=== PATIENT | female | born 1950 | race Caucasian/White ===

== ENCOUNTER → 2016-12-24 | Outpatient (CLI) | payer BC ==
[~2016-12-24] MED LIST: CALC500C70 PO; MOME50SP5 NAE; MULT-506 PO
[2016-12-24 10:47] LABS: BASO % 1.1 %; BASO ABS # 0.04 K/uL (0-0.2); COMPLETE YES; EOS % 3.8 %; HEMATOCRIT 44.4 % (37-47); LYMPH % 26.2 %; LYMPH ABS # 0.97 K/uL (1.2-3.4); MEAN CELL VOLUME 94.1 fL (80-100); MEAN CORPUSCULAR HEMOGLOBIN 28.8 pg (25-34); MEAN CORPUSCULAR HGB CONC 30.6 g/dl (32-36); MONO % 17.8 %; NEUT % 51.1 %; PLATELET COUNT 263 K/uL (130-400); RED BLOOD COUNT 4.72 M/uL (4.2-5.4)
[2016-12-24 11:06] LABS: ALB/GLOB RATIO 1.2 (0.9-2); ALKALINE PHOSPHATASE 73 U/L (45-117); ALT/SGPT 27 U/L (12-78); AST/SGOT 24 U/L (15-37); BLOOD UREA NITROGEN 21 mg/dl (7-18); BUN/CREATININE RATIO 28.2 (10-20); CARBON DIOXIDE 27 mmol/L (21-32); CHLORIDE 108 mmol/L (98-107); CHOLESTEROL 183 mg/dl (0-200); CREATININE 0.74 mg/dl (0.60-1.20); GLUCOSE 89 mg/dl (70-99); HDL CHOLESTEROL 90 mg/dl; LDL CHOLESTEROL CALCULATED 80 mg/dl; POTASSIUM 4.1 mmol/L (3.5-5.1); SODIUM 143 mmol/L (136-145); TRIGLYCERIDES 66 mg/dl (0-150); VERY LOW DENSITY LIPOPROT CALC 13 mg/dl
[2016-12-24 11:10] LABS: MANUAL MICROSCOPIC REQUIRED? YES; URINE APPEARANCE CLEAR (CLEAR); URINE BILIRUBIN NEG (NEG); URINE COLOR YELLOW; URINE NITRITE NEG (NEG); UROBILINOGEN NEG (NEG)
[2016-12-24 11:19] LABS: REVIEW REQ? NO
[2016-12-24 11:33] LABS: CALCIUM 8.8 mg/dl (8.5-10.1)
[2016-12-24 11:33] LABS: URINE RBC >30 /hpf (0-4); URINE WBC 0 /hpf (0-5)
[2016-12-24 11:34] LABS: URINE BACTERIA NEG (NEG)
== END | disposition home or self-care (01) ==
LOC: C.LABBC 07:51
PROVIDERS: ATTEND Internal Medicine Pulmonary Disease
DX: Z00.00 Encounter for general adult medical examination without abnormal findings (principal); J30.9 Allergic rhinitis, unspecified; K57.90 Diverticulosis of intestine, part unspecified, without perforation or abscess without bleeding; K22.4 Dyskinesia of esophagus; H81.09 Meniere's disease, unspecified ear

== ENCOUNTER → 2017-02-17 | Outpatient (CLI) | payer BC | END | disposition home or self-care (01) | LOC: C.PATHSPEC 17:07 | PROVIDERS: ATTEND Nurse Practitioner Family | DX: R31.29 Other microscopic hematuria (principal) ==

== ENCOUNTER → 2017-03-21 | Outpatient (CLI) | payer BC ==
--- NOTE | 2017-03-21 09:33 | DIAGNOSTIC IMAGING REPORT ---
CT OF THE ABDOMEN AND PELVIS WITH AND WITHOUT CONTRAST HEMATURIA PROTOCOL CLINICAL HISTORY: Microscopic hematuria. COMPARISON STUDY: None. TECHNIQUE: Unenhanced and split bolus phase imaging of the abdomen and pelvis was performed. Injection of 93 cc Optiray 320 IV was uneventful. A dose lowering technique was utilized adhering to the principles of ALARA. CT DOSE: 927.18 mGycm FINDINGS: No renal, ureteral or bladder calculi are present. There are left-sided parapelvic cysts. Small right parapelvic cysts are noted. There is no hydronephrosis or hydroureter. No solid renal lesions are identified. There are several subcentimeter renal lesions which are too small to characterize but likely reflect cysts. No upper tract urothelial lesions are identified on since exam. Bladder is incompletely opacified but no bladder mass is identified. The liver, spleen, adrenal glands and pancreas are unremarkable. There is no lymphadenopathy within the abdomen or pelvis. Sigmoid diverticulosis is noted without evidence for acute diverticulitis. There is no ascites. No suspicious osseous lesion is present. IMPRESSION: 1. No CT findings to explain hematuria. 2. No acute process within the abdomen or pelvis. 3. Several subcentimeter bilateral renal lesions which are too small to characterize but likely reflect cysts. Electronically signed by: Silas Oquendo M.D. 03/21/2017 9:32 AM Dictated Date/Time: 03/21/2017 9:02 AM
== END | disposition home or self-care (01) ==
LOC: C.CTS 08:34
PROVIDERS: ATTEND Nurse Practitioner Family
DX: R31.29 Other microscopic hematuria (principal)

== ENCOUNTER → 2017-04-08 | Outpatient (CLI) | payer BC ==
--- NOTE | 2017-04-08 14:55 | MAMMOGRAPHY REPORT ---
BILATERAL DIGITAL SCREENING MAMMOGRAM WITH CAD: 04/08/2017 CLINICAL HISTORY: Routine screening. Patient has no complaints. TECHNIQUE: Current study was also evaluated with a Computer Aided Detection (CAD) system. Bilateral CC and MLO views were obtained. COMPARISON: Comparison is made to exams dated: 04/07/2016 mammogram, 04/02/2015 mammogram, 04/01/2014 m ammogram, 03/26/2013 mammogram, 03/24/2012 mammogram, and 03/24/2012 ultrasound - [facility]. BREAST COMPOSITION: The tissue of both breasts is extremely dense, which lowers the sensitivity of m ammography. FINDINGS: No suspicious masses, calcifications, or areas of architectural distortion are noted in ei ther breast. There has been no significant interval change compared to prior exams. Scattered bilater al benign-appearing calcifications are not significantly changed. IMPRESSION: ACR BI-RADS CATEGORY 2: BENIGN There is no mammographic evidence of malignancy. A 1 year screening mammogram is recommended. The pa tient will receive written notification of the results. Approximately 10% of breast cancers are not detected with mammography. A negative mammographic report should not delay biopsy if a clinically suggestive mass is present. Areli Talavera M.D. /:04/08/2017 12:02:17 Door Cutter: Alina BUSCH(Britt)(M), [facility] letter sent: Normal 1/2 BI-RADS Code: ACR BI-RADS Category 2: Benign
== END | disposition home or self-care (01) ==
LOC: C.MAMM 09:18
PROVIDERS: ATTEND Obstetrics & Gynecology
DX: Z12.31 Encounter for screening mammogram for malignant neoplasm of breast (principal)

== ENCOUNTER 2025-04-03 15:32 | Observation (INO) ==
--- NOTE | 2025-04-03 15:49 | Emergency Department Note ---
Impression & Plan Diverticulitis of large intestine with complication, Abdominal pain, Sigmoid diverticulitis ED Provider Note NAME: SAGAR PENDLETON AGE: 74 SEX: F : 1950 ARRIVES VIA: Walk-In INFORMANT: Patient ED PROVIDER(S): Rojelio Krishnamurthy MD CHIEF COMPLAINT: Complicated diverticulitis, referred. PLAN: Disposition: Admit MEDICAL DECISION MAKING: The patient is a pleasant 74-year-old woman with a past medical history of hypertension, prior history of diverticulitis who presents to the emergency department via walk-in accompanied by her daughter referred by her PCP office after her outpatient CT today demonstrated complicated diverticulitis where acute diverticulitis of the sigmoid colon is described with adjacent sigmoid mesocolon extending towards the posterior uterus suggesting possible sinus tract. Patient denies any fevers. At this time she denies any abdominal pain. She denies nausea or vomiting. She reports symptoms began a week or so ago where she had episodes of diarrhea. Subsequently she had lower abdominal pain which was reminiscent of her history of diverticulitis until contact her PCP office and CT imaging was ordered. She reports going to the weekend she started a clear diet and felt her symptoms calm and improved. On evaluation the patient no distress, afebrile blood pressure 170/100s vital signs otherwise stable. She has a soft nontender ventral hernia which was also seen on CT. Otherwise abdomen is nontender. WBC, H/H and platelets within normal limits. Chemistry without metabolic acidosis. Electrolytes LFTs unremarkable. Lipase is normal. UA without evidence of infection. Treatment issue with IV Zosyn. Patient and daughter agree with plan for admission for further management. Case was discussed with ESTELA Cardona PAC, with ESTELA Ryan hospitalist who will evaluate the patient for admission. Further management per admitting team. Triage Nursing notes reviewed and agree them. Prior/external medical records reviewed Vital Signs: reviewed Differential diagnosis: Gastroenteritis, food borne illness, infections, appendicitis, diverticulitis, inflammatory bowel disease, obstruction, GI bleed, biliary pathology, volvulus, as well as other pathologies. ER treatment provided: See below. Diagnostics interpreted by me: ECG: None Cardiac Monitoring: An order for continuous cardiac monitoring was placed and demonstrated Laboratory studies: See below Imaging studies: See below Consultation(s): Case was discussed with ESTELA Cardona PAC, with ESTELA Ryan hospitalist who will evaluate the patient for admission. HPI: Per MDM. ROS: See above HPI for pertinent positives & negatives. A total of 10 systems reviewed and were otherwise negative. VITALS:See Below PHYSICAL EXAMINATION: GENERAL: Awake, alert, well-appearing, in no distress HENT: Normocephalic, atraumatic. Oropharynx unremarkable. EYES: Normal conjunctiva. Sclera non-icteric. NECK: Supple. No nuchal rigidity. FROM. No JVD. RESPIRATORY: Clear to auscultation. CARDIAC: Regular rate, normal rhythm. Extremities warm and well perfused. Pulses equal. ABDOMEN: Soft, non-distended. No tenderness to palpation. No rebound or guarding. Ventral hernia, soft nontender MUSCULOSKELETAL: Chest examination reveals no tenderness. The back is symmetrical on inspection without obvious abnormality. There is no CVA tenderness to palpation. No joint edema. LOWER EXTREMITIES: Calves are equal size bilaterally and non-tender. No edema. No discoloration. NEURO: Normal sensorium. No sensory or motor deficits noted. SKIN: No rash or jaundice noted. Rojelio Krishnamurthy MD Past Med/Surg History Problem List (Updated 04/04/25 @ 01:44 by Rojelio Krishnamurthy MD) Abdominal pain (Acute) Diverticulitis of large intestine with complication (Acute) Sigmoid diverticulitis (Acute) Abdominal pain History of diverticulitis Primary hypertension Varicose veins of both lower extremities Osteopenia Hyperlipidemia Asymmetric SNHL (sensorineural hearing loss) Rectal pain Medical History ETD (eustachian tube dysfunction) Sensorineural hearing loss (SNHL) of left ear with restricted hearing of right ear Diverticulosis Basal cell carcinoma of skin Menieres disease Rectal pressure Borderline glaucoma Surgical History History of basal cell carcinoma (BCC) excision Previous section H/O hernia repair H/O colonoscopy (~2014) Family History Father Allergies Other Diabetes Osteoporosis Social History Smoking Status: Former smoker Tobacco Type: Cigarettes Age Started Using Tobacco: 15; Age Quit Using Tobacco: 23; packs per day: 1; Smoking End Date: 50 years ago; Second Hand Exposure: No; Do You Dip or Chew Tobacco: No; Hx Alcohol Use: Yes Alcohol type: wine Alcohol Intake Frequency: 2-3 x/Week Alcohol Intake Frequency Comment: 1 glass of wine everal times a week Hx Substance Use: No Preferred Language: Welsh Communication Ability: Effective Stock Parts Inspector Required: No Beliefs That Will Affect Care: None marital status: Current Living Situation: Spouse Current Living Situation Comment: lives in split level home with current occupational status: retired Other Information That Helps Us Care for You: No Feels Safe at Home: Yes Safety Concerns: Feels Safe At This Time Seatbelt Use: always Assistive Devices: Contacts and Hearing Aid - Bilateral Allergies Allergies Allergy/AdvReac Type Severity Reaction Status Date / Time No Known Drug Allergies Allergy Verified 04/02/25 13:49 Home Meds Home Medications Medication Instructions Recorded Confirmed multivitamin (Daily Multi-Vitamin 1 tab PO QAM 04/26/23 04/03/25 tablet) calcium 600 mg (as carbonate)-vit 1 tab PO BID 05/31/24 04/03/25 D3 10 mcg (400 unit) chewable tablet (Calcium 600 with Vitamin D3) mometasone 50 mcg/actuation nasal 1 spray intranasal 3XWK 04/03/25 04/03/25 spray Previous Rx's Medication Instructions Recorded hydrocortisone acetate 25 mg 25 mg LA BID 10 days #20 ea 04/02/25 rectal suppository (Anucort-HC) olmesartan 5 mg tablet 5 mg PO DAILY #90 tabs 04/02/25 Results & Data (ED) Vital Signs Vital Signs - 24 hr 04/03/25 15:34 04/03/25 16:29 04/03/25 16:33 Temperature 36.5 C Temperature Source Skin Pulse Rate 87 75 77 Pulse Rate from SpO2 Sensor 77 Respiratory Rate 20 22 Respiratory Effort / Characteristics Non-Labored Spontaneous Respiratory Depth Normal Respiratory Pattern Regular Blood Pressure 178/100 H 153/79 H Blood Pressure Mean 126 103 Pulse Oximetry 94 95 Oxygen Delivery Method Room Air Sepsis Recent Fever Within 48 Hours No Sepsis New/Unexplained Change in Mental Status N/A Sepsis Action Taken by Nursing No Action Required 04/03/25 17:00 04/03/25 17:39 Temperature Temperature Source Pulse Rate 77 66 Pulse Rate from SpO2 Sensor 77 66 Respiratory Rate 16 19 Respiratory Effort / Characteristics Respiratory Depth Respiratory Pattern Blood Pressure 169/85 H Blood Pressure Mean 113 Pulse Oximetry 98 95 Oxygen Delivery Method Sepsis Recent Fever Within 48 Hours Sepsis New/Unexplained Change in Mental Status Sepsis Action Taken by Nursing Laboratory Data Attestation: I reviewed the patient's lab results. 04/03/25 15:40 04/03/25 16:24 Lab Results 04/03/25 04/03/25 04/03/25 Range/Units 15:40 16:24 18:12 WBC 9.46 (4.8-10.8) K/ul RBC 4.30 (4.20-5.40) M/uL Hgb 13.0 (12.0-16.0) g/dl Hct 39.0 (37.0-47.0) % MCV 90.7 (80.0-100.0) fL MCH 30.2 (25.0-34.0) pg MCHC 33.3 (32.0-36.0) g/dL RDW Std Deviation 41.6 (36.4-46.3) fL RDW Coeff of Gemini 12.6 (11.5-14.5) % Plt Count 369 (130-400) K/uL MPV 9.2 L (9.4-12.4) fL Immature Gran % (Auto) 0.4 % Neut % (Auto) 72.3 % Lymph % (Auto) 13.7 % [place] % (Auto) 11.0 % Eos % (Auto) 1.9 % Baso % (Auto) 0.7 % Neut # (Auto) 6.83 H (1.40-6.50) K/uL Lymph # (Auto) 1.30 (1.20-3.40) K/uL [place] # (Auto) 1.04 H (0.11-0.59) K/uL Eos # (Auto) 0.18 (0.00-0.50) K/uL Baso # (Auto) 0.07 (0.00-0.20) K/uL Immature Gran # (Auto) 0.04 (0.01-0.20) K/uL Sodium 134 L (136-145) mmol/L Potassium TNP 3.9 Chloride 99 (98-107) mmol/L Carbon Dioxide 29 (21-32) mmol/L Anion Gap 6 (3-11) BUN 6 (6-23) mg/dl Creatinine 0.68 (0.6-1.2) mg/dl Est Cr Clr Drug Dosing 58.2 ml/min eGFR 90.20 BUN/Creatinine Ratio 8.8 L (10-20) Glucose 96 (70-99(Fasting)) mg/dl Calcium 8.8 (8.6-10.3) mg/dl Total Bilirubin 0.5 (0.2-1.0) mg/dl AST TNP 20 ALT 15 (7-52) U/L Alkaline Phosphatase 69 (34-104) U/L Total Protein 7.1 (6.0-8.3) gm/dl Albumin 3.6 (3.4-5.0) gm/dl Globulin 3.5 (2.5-4.0) gm/dl Albumin/Globulin Ratio 1.0 (0.9-2) Lipase 25 (11-82) U/L Urine Color Yellow Urine Appearance Clear (Clear) Urine pH 7.5 (4.5-7.5) Ur Specific [place] 1.009 (1.000-1.030) Urine Protein Negative (Negative) Urine Glucose (UA) Negative (Negative) Urine Ketones Negative (Negative) Urine Blood Negative (Negative) Urine Nitrite Negative (Negative) Urine Bilirubin Negative (Negative) Urine Urobilinogen Negative (Negative) Ur Leukocyte Esterase Trace H (Negative) Urine WBC (Auto) 0-5 (0-5) /hpf Urine RBC (Auto) 0-2 (0-2) /hpf U Hyaline Cast (Auto) 0-2 (0-2) /lpf U Epithel Cells (Auto) 0-2 (0-2) /hpf Urine Bacteria (Auto) None Seen (None Seen) Urine Comment Administered Medications Lactated Ringer's (Lr) 1,000 mls @ 80 mls/hr IV .[id number] CARLY Stop: 04/04/25 19:14 Last Admin: 04/03/25 18:43 Dose: 80 mls/hr Documented By: CEF Piperacillin Sod/Tazobactam Sod (Zosyn) 4.5 gm in 100 mls @ 25 mls/hr IV Q8H [facility]; Protocol Stop: 04/07/25 22:59 Last Admin: 04/04/25 00:12 Dose: 25 mls/hr Documented By: YUE Simethicone (Simethicone 80 Mg Chew) 80 mg PO Q6H CARLY Stop: 05/03/25 22:59 Last Admin: 04/04/25 00:14 Dose: Not Given Documented By: YUE Discontinued Medications Piperacillin Sod/Tazobactam Sod (Zosyn) 4.5 gm in 100 mls @ 200 mls/hr IV NOW ONE; Protocol Stop: 04/03/25 16:33 Last Infusion: 04/03/25 16:49 Dose: Infused Documented By: Admin: 04/03/25 16:12 Dose: 200 mls/hr Documented By: CEF Sodium Chloride (Nss) 1,000 mls @ 999 mls/hr IV .Q1H1M ONE Stop: 04/03/25 17:04 Last Infusion: 04/03/25 18:43 Dose: Infused Documented By: Admin: 04/03/25 16:11 Dose: 999 mls/hr Documented By: CEF Imaging Data Radiologist's Impression: Outpatient CT: ABDOMEN AND PELVIS CT WITH IV AND ORAL CONTRAST CT DOSE: 569.26 mGy.cm HISTORY: Z87.19 - Personal history of other diseases of the digest... TECHNIQUE: Multiaxial CT images of the abdomen and pelvis were performed following the IV administration of Optiray and oral contrast. A dose lowering technique was utilized adhering to the principles of ALARA. COMPARISON STUDY: 05/03/2023 FINDINGS: Mild cardiomegaly. Lung bases are generally clear. No pneumatosis or pneumoperitoneum. Unremarkable spleen, pancreas, adrenal glands and contracted gallbladder. The liver is within normal limits. There is patency of the hepatic and portal veins. No hydronephrosis. Bilateral renal sinus cysts barium urinary bladder wall thickening with partial distention. Heterogeneous uterus with possible fibroids. There is a large inflamed diverticulum on image 156 series 3 involving the sigmoid. Associated sigmoid wall thickening with adjacent inflammatory stranding and trace ascites. Possible sinus tract extends towards the posterior uterine fundus on image 248 series 3. No drainable abscess. There is a small fat and fluid filled right paracentral low abdominal wall hernia on image 258 with opening of the hernia approximately 1 cm. No acute fracture is seen. IMPRESSION: 1. Acute sigmoid diverticulitis with possible sinus tract within the adjacent sigmoid mesocolon extending towards the posterior uterus. 2. Trace pelvic ascites without pneumoperitoneum, bowel obstruction or drainable abscess. 3. Small fat and fluid filled lower abdominal wall hernia redemonstrated. 4. Incidental findings as above. ACT 112: Negative or not required by law. The above report was generated using voice recognition software. It may contain grammatical, syntax or spelling errors. Electronically signed by: Dre Stuart M.D. 04/03/2025 2:00 PM Discharge Plan Visit Data Chief Complaint: Abdominal Pain Stated Complaint: ACUTE DIVERTICULITIS, ABN CT SCAN, REF BY GASTRO ED Provider: Rojelio Krishnamurthy Discharge Problem: Diverticulitis of large intestine with complication, Abdominal pain, Sigmoid diverticulitis Patient Disposition: Admitted As Inpatient Condition: Fair Discharge Instructions Interventions: ED Discharge Assessment Last Done: 04/03/25 22:04 Discharge Problem: Abdominal pain Qualifiers: Abdominal location: left lower quadrant Qualified Code(s): R10.32 - Left lower quadrant pain
[2025-04-03 15:58] LABS: Hematocrit (blood only) 39.0 % (37.0-47.0); Hemoglobin 13.0 g/dl (12.0-16.0); Immature Granulocytes # (auto) 0.04 K/uL (0.01-0.20); Immature Granulocytes % (auto) 0.4 %; Mean Corpuscular Hemoglobin 30.2 pg (25.0-34.0); Mean Corpuscular Volume 90.7 fL (80.0-100.0); Platelet Count 369 K/uL (130-400); RDW Standard Deviation 41.6 fL (36.4-46.3); Red Blood Count 4.30 M/uL (4.20-5.40); White Blood Count 9.46 K/ul (4.8-10.8)
[2025-04-03] MEDS: SODIUM CHLORIDE 0.9% 1,000 ML IV ONE (16:11)
[2025-04-03] MEDS: PIPERACILLIN/TAZOBACTAM 4.5 GM/100 ML BAG IV ONE (16:12)
[2025-04-03 16:17] LABS: Alanine Aminotransferase 15 U/L (7-52); Albumin Globulin Ratio 1.0 (0.9-2); Albumin Level 3.6 gm/dl (3.4-5.0); Alkaline Phosphatase 69 U/L (34-104); Anion Gap 6 (3-11); Bilirubin,Total 0.5 mg/dl (0.2-1.0); Blood Urea Nitrogen 6 mg/dl (6-23); Calcium 8.8 mg/dl (8.6-10.3); Carbon Dioxide 29 mmol/L (21-32); Chloride 99 mmol/L (98-107); Creatinine Clr Calc Pharmacy 58.2 ml/min; Globulin 3.5 gm/dl (2.5-4.0); Glucose 96 mg/dl (70-99(Fasting)); Lipase 25 U/L (11-82); Sodium 134 mmol/L (136-145); Total Protein 7.1 gm/dl (6.0-8.3)
--- NOTE | 2025-04-03 16:39 | History & Physical Report ---
<Statement entered by Trista Ryan MD - 04/03/25 20:33> I have reviewed vital signs, chart notes, labs and imaging. I have personally seen, evaluated and examined the patient. I have also discussed the management of the patient with the ROBBIE and I agree with the exam findings documented in the history and physical examination and the documented assessment and plan unless otherwise stated below. Priscila had symptoms of LLQ pain and gassiness for about a week, stayed on clears and improved. No antibiotics. Seen in GI clinic and based on CT referred to ED. she actually is feeing better, no LLQ pain now but remains gassy My exam notable for mildly tympanic abdomen with some distention, +BT, nontender to palpation including suprapubic area and LLQ A/P: Mild diverticulitis with sinus tract -IV antibiotics -clears --added simethicone -consult surgery -depending on surgical recs might be able to return home as early as tomorrow Date of Service April 03, 2025 Assessment & Plan (1) Sigmoid diverticulitis: Plan This patient is a 74-year-old female with past medical history of diverticulitis who presented on 04/03 after having an outpatient A/P CT that revealed acute diverticulitis. No leukocytosis; afebrile on arrival; not septic. Clinically, she denies abdominal pain, and her diarrhea has resolved. However, CT imaging notes a "possible sinus tract", which could potentially develop into a fistula. Patient being admitted for IV antibiotics. #Acute sigmoid diverticulitis Noted on A/P CT on 04/03 No drainable abscess appreciated However, 1cm possible sinus tract within the adjacent sigmoid mesocolon into uterus was noted Concerned that this sinus tract could potentially develop into a fistula if left untreated Reached out to colorectal surgery to discuss required length of stay on IV antibiotics (as patient is otherwise asymptomatic and vital signs are stable on admission) Will plan for serial imaging General Surgery consult appreciated Initiate Zosyn 4.5 g IV q8h N.p.o. for now IVF with LR at 80mL/hr x 2 L IV pain control with acetaminophen PRN IV antiemetics PRN #HTN Continue olmesartan or formulary equivalent Disposition: Obs - admit to [facility] VTE PPx: Hold chemical DVT PX prior to surgical eval History of Present Illness Chief Complaint: Abdominal pressure, diarrhea Primary Care Provider: Miguelina Ramírez MD Mrs. Wick is a 74-year-old female with PMH of diverticulitis, HTN, HLD, and osteopenia. She presented on 04/[address] done outpatient that revealed diverticulitis with abscess. Patient originally developed an acute episode of diarrhea on Thursday 03/22. She had liquidy stool, but this cleared up within a day. No melena. No recent antibiotic use. No blood in stool. Following this episode of diarrhea, she returned to her regular diet and began having abdominal pressure/bloating throughout the week. This was similar to her most recent episode of diverticulitis approximately 2 years ago. She was concerned that she might be developing diverticulitis, and put herself on a clear liquid diet. She then slowly introduced low fiber diet to her diet over the past 2 days. She has continued to have regular gas and bloating since this time; 2 normal bowel movements on Tuesday and Tuesday this week. Patient reached out to her agriculture laboratory technician, who recommended she obtain a CT this morning revealed diverticulitis. She denies any abdominal pain or pressure at time of admission. She denies any nausea, vomiting, or recurrence of diarrhea in the past week. Patient took her calcium supplement and olmesartan this morning. No recent change in medications. No recent change in diet prior to the start of her symptoms. No prior history of abdominal surgeries other than a . She denies PMH of IBS, UC, Crohn's, or food intolerances. Patient denies recent alcohol use or smoking. Patient is hypertensive at 169/85 at time of admission; vitals otherwise stable. ED course: Zosyn 4.5 g IV NSS 1000 mL IV ROS: Patient denies fever, chills, night sweats, chest pain, chest palpitations, SOB, pleuritic CP, cough, abdominal pain, N/V, recurrence of diarrhea since her initial episode, recurrence of abdominal pressure, burning with urination, blood in your stool, melena, or numbness or tingling going down the legs. Allergies Allergy/AdvReac Type Severity Reaction Status Date / Time No Known Drug Allergies Allergy Verified 04/02/25 13:49 Home Medications Medication Instructions Recorded Confirmed Type multivitamin (Daily Multi-Vitamin 1 tab PO QAM 04/26/23 04/03/25 History tablet) calcium 600 mg (as carbonate)-vit 1 tab PO BID 05/31/24 04/03/25 History D3 10 mcg (400 unit) chewable tablet (Calcium 600 with Vitamin D3) hydrocortisone acetate 25 mg 25 mg [place] BID 10 days #20 ea 04/02/25 04/03/25 Rx rectal suppository (Anucort-HC) olmesartan 5 mg tablet 5 mg PO DAILY #90 tabs 04/02/25 04/03/25 Rx mometasone 50 mcg/actuation nasal 1 spray intranasal [id number] 04/03/25 04/03/25 History spray Past Med/Surg History Problem List (Updated 04/03/25 @ 18:09 by Lazaro Rose PA-C) Sigmoid diverticulitis Abdominal pain History of diverticulitis Primary hypertension Varicose veins of both lower extremities Osteopenia Hyperlipidemia Asymmetric SNHL (sensorineural hearing loss) Rectal pain Medical History (Updated 04/03/25 @ 18:09 by Lazaro Rose PA-C) ETD (eustachian tube dysfunction) Sensorineural hearing loss (SNHL) of left ear with restricted hearing of right ear Diverticulosis Basal cell carcinoma of skin Menieres disease Rectal pressure Borderline glaucoma Surgical History History of basal cell carcinoma (BCC) excision Previous section H/O hernia repair H/O colonoscopy (~2014) Family History Father Allergies Other Diabetes Osteoporosis Social History Smoking Status: Former smoker Tobacco Type: Cigarettes Age Started Using Tobacco: 15; Age Quit Using Tobacco: 23; packs per day: 1; Second Hand Exposure: No; Do You Dip or Chew Tobacco: No; Hx Alcohol Use: Yes Alcohol type: wine Alcohol Intake Frequency: 2-3 x/Week Alcohol Intake Frequency Comment: 1 glass of wine everal times a week Hx Substance Use: No Preferred Language: Slovenian Communication Ability: Effective Art Coordinator Required: No Beliefs That Will Affect Care: None marital status: Current Living Situation: Spouse current occupational status: retired Feels Safe at Home: Yes Seatbelt Use: always Assistive Devices: Contacts and Hearing Aid - Bilateral Review of Systems Review of Systems: See HPI above Physical Exam Physical Exam: General: no acute distress; pleasant affect; daughter at bedside; non-toxic appearing; well-nourished; cooperative; SpO2 95% on RA HEENT: normocephalic, atraumatic; no scleral icterus; PERRLA; vision and hearing grossly intact Neck: supple; no lymphadenopathy; trachea midline Skin: warm, dry without signs of tenting; no cyanosis; no rashes, bruising, lesions, or erythema noted CV: chest wall NTP; RRR; S1/S2 normal; no murmurs/rubs/gallops; pulses intact and symmetric at radial, DP, and PT Lungs: no acute respiratory distress; symmetrical chest wall expansion; clear breath sounds across all lung weathers w/o adventitious sounds; no wheezing ABD: Soft, mildly TTP in the left lower quadrant; BS present; no rebound/guarding; no distention; no rashes or bruising appreciated in abdomen or flanks bilaterally MSK: no tics or fasciculations; no edema noted in the LEs b/l, nonerythematous Neuro: A&Ox3; normal mood and affect; fluent speech; no focal deficits; sensation intact and symmetric in lower extremity bilaterally Results & Data Results & Data Vital Signs (Past 12 Hours) Vital Signs Temp Pulse Resp BP Pulse Ox O2 Del Method 04/03/25 16:29 75 04/03/25 15:34 36.5 C 87 20 178/100 H 94 Room Air Laboratory Results Abnormal lab results 04/03/25 Range/Units 15:40 MPV 9.2 L (9.4-12.4) fL Neut # (Auto) 6.83 H (1.40-6.50) K/uL [place] # (Auto) 1.04 H (0.11-0.59) K/uL Sodium 134 L (136-145) mmol/L BUN/Creatinine Ratio 8.8 L (10-20) ECG Additional Comments: ECG on 04/02 revealed NSR at 71 bpm; QTc 415 Code Status & VTE Plan Code Status Full code VTE Prophylaxis Plan VTE Prophylaxis will be ordered: Yes PG Care Time/CCT Total # of Minutes Spent Total Time Spent with Patient: Total time spent is greater than 50% in coordination of care (as documented) at patient's floor/unit and/or counseling patient: [place] [address] INT INP/OBS CARE MIN Patient Type Established History Comprehensive Exam Comprehensive Medical Decision Making Moderate Complexity Diagnoses Sigmoid diverticulitis K57.32
[2025-04-03 16:58] LABS: Potassium 3.9 mmol/L (3.5-5.1)
[2025-04-03 18:31] LABS: Appearance Urine Clear (Clear); Bacteria Urine Automated None Seen (None Seen); Cast Urine Automated 0-2 /lpf (0-2); Epithelial Cell Urine Auto 0-2 /hpf (0-2); Glucose Urine UA Negative (Negative); RBC Urine Automated 0-2 /hpf (0-2); WBC Urine Automated 0-5 /hpf (0-5)
[2025-04-03] MEDS: LACTATED RINGER'S 1,000 ML IV SCH (18:43)
--- NOTE | 2025-04-03 19:52 | Surgery Consultation ---
Date of Consultation April 03, 2025 Assessment & Plan (1) Sigmoid diverticulitis: Patient has been admitted on the hospitalist service. From a surgical perspective we recommend the following: Provide analgesics as needed Provide antiemetics if needed Recommend implementing n.p.o. status Hydrate with IV fluids while the patient is n.p.o. Antibiotics in form of Zosyn initiated in edition continue Follow serial labs At the time of my exam the patient is noted to be nontoxic-appearingshe is normotensive without tachycardia, fever, leukocytosis, or acute kidney injury. Her abdominal exam is entirely benign. Therefore, I feel conservative measures are warranted at this time as outlined above. Additional recommendations be forthcoming based on her clinical course as unfolds History of Present Illness Reason for Consultation: Diverticulitis History of Present Illness This is a 74-year-old female who is referred to the emergency department by her outpatient physicians secondary to concern for diverticulitis. Patient says that approximately 1 week ago the patient was experiencing some lower abdominal pain along with some rectal pressure. She also had some diarrhea which she notes has since resolved without medical attention. Patient does note that when the symptoms occurred she placed herself on a clear liquid diet as she has had diverticulitis in the past and this helped alleviate her symptoms. The patient did have an appointment scheduled with her gastroenterology team and she did see them today and due to her history of previous diverticulitis they ordered a CT scan which will be described below. With her current symptomatology she denies any fevers, shakes, chills, nausea, or vomiting. She also currently does not have any diarrhea. Patient does report she has had diverticulitis approximately 2 years ago and she did have a colonoscopy around the same time. With her current symptomatology she denies any pneumaturia or dysuria. She also notes that she does not have any vaginal discharge. She has had prior abdominal surgeries in the form of a . The patient did have an outpatient CT scan performed this morning. This study showed the patient had findings consistent with acute sigmoid diverticulitis. There is concern the patient had a possible sinus tract extending towards the posterior uterus which was adjacent to the sigmoid mesocolon. There is some trace pelvic ascites but no pneumoperitoneum was noted. There is no evidence of drainable abscess. Since presentation to the emergency department the patient has had labs where CBC revealed white blood cell count, hemoglobin, hematocrit, and platelet count were all normal. Chemistry profile showed sodium was 134 with a normal potassium. BUN and creatinine were both normal. The urinalysis did show trace leukocyte esterase but was otherwise not indicative of infection. At the time of my interview the patient was resting comfortably in bed and she w as in no distress. Allergies Allergy/AdvReac Type Severity Reaction Status Date / Time No Known Drug Allergies Allergy Verified 04/02/25 13:49 Home Medications Medication Instructions Recorded Confirmed Type multivitamin (Daily Multi-Vitamin 1 tab PO QAM 04/26/23 04/03/25 History tablet) calcium 600 mg (as carbonate)-vit 1 tab PO BID 05/31/24 04/03/25 History D3 10 mcg (400 unit) chewable tablet (Calcium 600 with Vitamin D3) hydrocortisone acetate 25 mg 25 mg MN BID 10 days #20 ea 04/02/25 04/03/25 Rx rectal suppository (Anucort-HC) olmesartan 5 mg tablet 5 mg PO DAILY #90 tabs 04/02/25 04/03/25 Rx mometasone 50 mcg/actuation nasal 1 spray intranasal 3XWK 04/03/25 04/03/25 History spray Patient History Medical History ETD (eustachian tube dysfunction) Sensorineural hearing loss (SNHL) of left ear with restricted hearing of right ear Diverticulosis Basal cell carcinoma of skin Menieres disease Rectal pressure Borderline glaucoma Surgical History History of basal cell carcinoma (BCC) excision Previous section H/O hernia repair H/O colonoscopy (~2014) Family History Father Allergies Other Diabetes Osteoporosis Social History Smoking Status: Former smoker Tobacco Type: Cigarettes Age Started Using Tobacco: 15; Age Quit Using Tobacco: 23; packs per day: 1; Second Hand Exposure: No; Do You Dip or Chew Tobacco: No; Hx Alcohol Use: Yes Alcohol type: wine Alcohol Intake Frequency: 2-3 x/Week Alcohol Intake Frequency Comment: 1 glass of wine everal times a week Hx Substance Use: No Preferred Language: [place]alander Communication Ability: Effective Early [employer] Teacher Required: No Beliefs That Will Affect Care: None marital status: Current Living Situation: Spouse current occupational status: retired Feels Safe at Home: Yes Seatbelt Use: always Assistive Devices: Contacts and Hearing Aid - Bilateral Review of Systems Review of Systems: All systems reviewed & are unremarkable except as noted in HPI & below Physical Exam Constitutional: WD/WN, vitals as above Eyes: no conjunctival abnormality ENMT: Ears: no hearing impairment and no external ear abnormality Mouth: no oropharynx abnormality Neck: trachea midline Respiratory: normal respiratory effort; no respiratory distress and no labored breathing Cardiovascular: Rate/Rhythm: regular rate and regular rhythm Gastrointestinal (Abdomen): At the time of my exam the patient's abdomen was noted to be benignit is soft without distention, rigidity, rebound tenderness, or guarding. There is no pain noted with palpation Musculoskeletal: No calf tenderness Skin: no rashes Neurologic: moves all extremities Psychiatric: A+Ox3, euthymic affect Results & Data Vital Signs (Past 12 Hours) Vital Signs Temp Pulse Pulse Resp BP BP Pulse Ox 04/03/25 19:00 71 16 140/69 97 04/03/25 17:39 66 19 95 04/03/25 17:00 77 16 169/85 H 98 04/03/25 16:33 77 22 153/79 H 95 04/03/25 16:29 75 04/03/25 15:34 36.5 C 87 20 178/100 H 94 O2 Del Method 04/03/25 19:00 Room Air 04/03/25 17:39 04/03/25 17:00 04/03/25 16:33 04/03/25 16:29 04/03/25 15:34 Room Air PG Care Time/CCT Total # of Minutes Spent Total Time Spent with Patient: Total time spent is greater than 50% in coordination of care (as documented) at patient's floor/unit and/or counseling patient: Coding Level of Care Code 38754 INT INP/OBS CARE 375MIN Diagnoses Sigmoid diverticulitis K57.32
[2025-04-03] MEDS ORDERED: ACETAMINOPHEN 325 MG TAB PO PRN (22:45)
[2025-04-03] MEDS ORDERED: ONDANSETRON INJ 2 MG/ML 2 ML VIAL IV PRN (22:45)
[2025-04-03] MEDS ORDERED: ACETAMINOPHEN 1,000 MG/100 ML VIAL IV PRN (22:45)
[2025-04-03] MEDS ORDERED: MELATONIN 3 MG TAB PO PRN (22:45)
[2025-04-04] MEDS: PIPERACILLIN/TAZOBACTAM 4.5 GM/100 ML BAG IV SCH (00:12)
[2025-04-04] MEDS: SIMETHICONE 80 MG CHEW PO SCH (00:14)
[2025-04-04 07:32] LABS: Hematocrit (blood only) 40.4 % (37.0-47.0); Hemoglobin 13.1 g/dl (12.0-16.0); Immature Granulocytes # (auto) 0.02 K/uL (0.01-0.20); Immature Granulocytes % (auto) 0.3 %; Mean Corpuscular Hemoglobin 29.6 pg (25.0-34.0); Mean Corpuscular Volume 91.4 fL (80.0-100.0); Platelet Count 375 K/uL (130-400); RDW Standard Deviation 42.4 fL (36.4-46.3); Red Blood Count 4.42 M/uL (4.20-5.40); White Blood Count 6.78 K/ul (4.8-10.8)
[2025-04-04] MEDS: LOSARTAN POTASSIUM 25 MG TAB PO SCH (07:39)
[2025-04-04 07:47] VITALS: PULSE 89; RESP 16; TEMP 97.7; O2SAT 95
[2025-04-04 07:54] LABS: Anion Gap 7.0 (3-11); Blood Urea Nitrogen 5.0 mg/dl (6-23); Calcium 9.1 mg/dl (8.6-10.3); Carbon Dioxide 31.0 mmol/L (21-32); Chloride 103.0 mmol/L (98-107); Creatinine Clr Calc Pharmacy 50.8 ml/min; Glucose 98.0 mg/dl (70-99(Fasting)); Magnesium 2.0 mg/dl (1.7-2.4); Potassium 4.1 mmol/L (3.5-5.1); Sodium 141.0 mmol/L (136-145)
--- NOTE | 2025-04-04 09:20 | Surgery Progress Note ---
Date of Service April 04, 2025 Assessment & Plan (1) Sigmoid diverticulitis: Plan: Her CT images and results were personally viewed and interpreted by myself She does have significant diverticulosis with mild diverticulitis in her pelvis She is improving and we will start her on a clear liquid diet and advance to low fiber diet later for lunch as tolerated If she tolerates this she can likely be discharged later this afternoon Would give 2 weeks of oral antibiotics and she will follow-up with our colorectal surgeon as an outpatient to discuss further management She had a colonoscopy 2 years ago with her first bout of diverticulitis, she may need this repeated, but will defer to colorectal surgery on this Admission and Anticipated Discharge Date Admission Date: April 03, 2025 Subjective Patient seen and examined. Denies abdominal pain. States the pressure she had a few days ago in the lower abdomen has resolved. She had a normal bowel movement Tuesday and Tuesday. Denies any nausea or vomiting. Denies fevers or chills. Review of Systems Constitutional: no fever and no chills Respiratory: no cough and no dyspnea Cardiovascular: no chest pain and no dyspnea on exertion Gastrointestinal: no abdominal pain, no nausea, no vomiting, no constipation and no diarrhea/loose stools Genitourinary: no dysuria and no difficulty urinating Integumentary: no lesions and no changing lesions Neurologic: no headache(s) and no confusion Psychiatric: no behavioral changes and no depression Physical Exam Constitutional: WD/WN, vitals as above Respiratory: normal respiratory effort, lungs clear to auscultation Cardiovascular: RRR, no murmur, no edema Gastrointestinal (Abdomen): Inspection/Auscultation: abdomen normal to inspection; abdomen not distended Percussion/Palpation: abdomen soft; abdomen nontender and no guarding Skin: no rashes, warm and dry Psychiatric: A+Ox3, euthymic affect Results & Data Vital Signs (Past 12 Hours) Vital Signs Temp Pulse Pulse Resp BP BP Pulse Ox 04/04/25 07:46 36.5 C 89 16 147/85 H 95 04/03/25 22:30 36.7 C 73 18 153/73 H 99 04/03/25 22:04 82 16 143/74 H 97 O2 Del Method 04/04/25 07:46 Room Air 04/03/25 22:30 Room Air 04/03/25 22:04 Room Air PG Care Time/CCT Total # of Minutes Spent Total Time Spent with Patient: Total time spent is greater than 50% in coordination of care (as documented) at patient's floor/unit and/or counseling patient: Coding Level of Care Code 74323 SUB INP/OBS CARE 2/35MIN Diagnoses Sigmoid diverticulitis K57.32
--- NOTE | 2025-04-04 11:55 | Discharge Summary ---
Discharge Summary Date of Service April 04, 2025 Principal Dx & Hospital Course #1 = Principal Diagnosis (1) Sigmoid diverticulitis: (2) Diverticulitis of large intestine with complication: Plan This patient is a 74-year-old female with past medical history of diverticulitis who presented on 04/03 after having an outpatient A/P CT that revealed acute diverticulitis. No leukocytosis; afebrile on arrival; not septic. Clinically, she denies abdominal pain, and her diarrhea has resolved. However, CT imaging notes a "possible sinus tract", which could potentially develop into a fistula. Patient being admitted for IV antibiotics. #Acute sigmoid diverticulitis with sinus tract Noted on A/P CT on 04/03 No drainable abscess appreciated However, 1cm possible sinus tract within the adjacent sigmoid mesocolon into uterus was noted Concerned that this sinus tract could potentially develop into a fistula if left untreated Last colonoscopy 2 years ago (on 05/03/2023) Reached out to colorectal surgery Patient seen by Dr. Hendricks while in the hospital Will plan for discharge on oral antibiotics Recommend follow-up within the next 1 to 2 weeks as an outpatient to discuss elective surgery & repeat colonoscopy Patient meets all requirements for discharge at this time: VSS, no abdominal pain, no leukocytosis, tolerating advancement of diet, normal BMs this week Recommend serial imaging of the abdomen/pelvis as an outpatient Zosyn 4.5 g IV x 1 in the hospital Will plan to discharge patient on the following antibiotics x 13 additional days (through 04/16): Ciprofloxacin 500 mg p.o. q12h; QTc okay at 415; no history of aneurysm, per patient Metronidazole 500 mg p.o. q8h Dietitian consulted prior to discharge to provide information on low fiber diets at home #HTN Continue olmesartan on discharge Day of discharge 04/04: BP elevated at 147/85; vitals otherwise stable. Mrs. Wick is sitting upright in her chair reading a book this morning. She reports she is asymptomatic at this time. She denies any abdominal pain/pressure. She reports she has no new complaints and is otherwise asymptomatic. NKDA. She reports that she tolerated metronidazole and ciprofloxacin during her last episode of diverticulitis without issue. No prior history of aneurysms or vascular issues to her knowledge. She is eager to go home today if possible. ROS: Patient reports increased urinary frequency (which she attributes to receiving IV fluids overnight) Patient denies fever, chills, night sweats, chest pain, chest palpitations, SOB, cough, pleuritic CP, abdominal pain, recurrence of abdominal pressure, lower back pain, N/V, recurrence of diarrhea, burning with urination, melena, blood in your stool, or numbness tingling in the arms or legs Disposition: Discharge home Notes For Next Care Provider Patient hospitalized from 04/03 - 04/04 for an episode of acute sigmoid diverticulitis. On her abdomen/pelvic CT, there was a noted "sinus tract" within the adjacent sigmoid mesocolon into uterus. Patient was seen by colorectal surgeon (Dr. Hendricks), and will need a follow-up appointment to discuss elective surgery in approximately 1 week. Plan to discharge patient home on antibiotics x 2 weeks: Admission HPI Per Admitting Provider Mrs. Wick is a 74-year-old female with PMH of diverticulitis, HTN, HLD, and osteopenia. She presented on 04/[address] done outpatient that revealed diverticulitis with abscess. Patient originally developed an acute episode of diarrhea on Thursday 03/22. She had liquidy stool, but this cleared up within a day. No melena. No recent antibiotic use. No blood in stool. Following this episode of diarrhea, she returned to her regular diet and began having abdominal pressure/bloating throughout the week. This was similar to her most recent episode of diverticulitis approximately 2 years ago. She was concerned that she might be developing diverticulitis, and put herself on a clear liquid diet. She then slowly introduced low fiber diet to her diet over the past 2 days. She has continued to have regular gas and bloating since this time; 2 normal bowel movements on Tuesday and Tuesday this week. Patient reached out to her welding foreman, who recommended she obtain a CT this morning revealed diverticulitis. She denies any abdominal pain or pressure at time of admission. She denies any nausea, vomiting, or recurrence of diarrhea in the past week. Patient took her calcium supplement and olmesartan this morning. No recent change in medications. No recent change in diet prior to the start of her symptoms. No prior history of abdominal surgeries other than a . She denies PMH of IBS, UC, Crohn's, or food intolerances. Patient denies recent alcohol use or smoking. Patient is hypertensive at 169/85 at time of admission; vitals otherwise stable. ED course: Zosyn 4.5 g IV NSS 1000 mL IV ROS: Patient denies fever, chills, night sweats, chest pain, chest palpitations, SOB, pleuritic CP, cough, abdominal pain, N/V, recurrence of diarrhea since her initial episode, recurrence of abdominal pressure, burning with urination, blood in your stool, melena, or numbness or tingling going down the legs. Admission Exam Per Admitting Provider General: no acute distress; pleasant affect; daughter at bedside; non-toxic appearing; well-nourished; cooperative; SpO2 95% on RA HEENT: normocephalic, atraumatic; no scleral icterus; PERRLA; vision and hearing grossly intact Neck: supple; no lymphadenopathy; trachea midline Skin: warm, dry without signs of tenting; no cyanosis; no rashes, bruising, lesions, or erythema noted CV: chest wall NTP; RRR; S1/S2 normal; no murmurs/rubs/gallops; pulses intact and symmetric at radial, DP, and PT Lungs: no acute respiratory distress; symmetrical chest wall expansion; clear breath sounds across all lung weathers w/o adventitious sounds; no wheezing ABD: Soft, mildly TTP in the left lower quadrant; BS present; no rebound/guarding; no distention; no rashes or bruising appreciated in abdomen or flanks bilaterally MSK: no tics or fasciculations; no edema noted in the LEs b/l, nonerythematous Neuro: A&Ox3; normal mood and affect; fluent speech; no focal deficits; sensation intact and symmetric in lower extremity bilaterally Discharge Exam General: no acute distress; sitting upright in her chair reading a book; non- toxic appearing; cooperative HEENT: normocephalic, atraumatic; PERRLA; vision and hearing intact Neck: supple; trachea midline Skin: warm, dry without signs of tenting; no cyanosis; no rashes, bruising, lesions, or erythema noted CV: chest wall NTP; RRR; S1/S2 normal; no murmurs/rubs/gallops; pulses intact and symmetric at radial, DP, and PT Lungs: no acute respiratory distress; symmetrical chest wall expansion; clear breath sounds across all lung weathers w/o adventitious sounds; no wheezing ABD: Soft, NTP in all 4 quadrants, including left lower quadrant; BS present; no rebound/guarding; no distention MSK: no tics or fasciculations; no edema noted in the LEs b/l, nonerythematous Neuro: A&Ox3; normal mood and affect; fluent speech; sensation intact and symmetric in the LEs b/l Discharge Plan Discharge Items Patient Disposition: Home - Self-Care Reason For Visit: DIVERTICULITIS W/ SINUS TRACT Discharge Diagnosis: Acute sigmoid diverticulitis with sinus tract Condition on Discharge: Fair Activity: Resume your previous activity Non-emergency contact: Primary Care Provider Call non-emergency contact if: you have any medication questions, your symptoms worsen, your pain is not controlled and you have a fever Follow-up/Referrals: Miguelina Ramírez MD [Primary Care Provider] - 04/12/25 3:00 pm Diet: Low Fiber Diet Comment: Full liquid diet, then gradually add in low-fat diet as tolerated Addtl Attending Provider Instructions: You were hospitalized overnight at [facility] from 04/03 - 04/04 due to an episode of acute sigmoid diverticulitis. Imaging of your abdomen and pelvis revealed that there is a "sinus tract" extending from her mesocolon towards her uterus. We reached out to her colorectal surgeon (Dr. Yodit Hendricks), who reviewed her imaging, and felt that you are safe to be discharged home on oral antibiotics. Please plan to follow-up with Dr. Hendricks as an outpatient in the next 1 to 2 weeks. At time of discharge, your vitals are all stable. Your blood work does not reveal an elevated white blood cell count indicating severe infection, and you report no abdominal symptoms on advancing her diet. For these reasons we feel, we feel safe for you to return home at this time. We recommend that you continue to maintain a full liquid diet upon discharge and gradually re- introduce a low fiber diet of solids as tolerated. New prescriptions on discharge: - Ciprofloxacin 500 mg twice daily x 13 days - Metronidazole 500 mg 3 times daily x 13 days Please continue to take these antibiotics for the full course even if you begin to feel better. We also recommend you follow-up with your PCP in the next 7 to 10 days for a transitional care appointment. If you develop any new or worsening symptoms, such as fevers, chills, intractable abdominal pain/pressure, nausea, vomiting, or diarrhea, please return to the Emergency Department immediately. It was a pleasure taking care of you. Please reach out with any questions or concerns. Sincerely, The Hospital medicine team at [facility] Pending Studies at Discharge: No Stand-Alone Forms: My [facility] Medications and DC Order Prescriptions: New ciprofloxacin HCl [Cipro] 500 mg tablet 500 mg PO BID 13 Days Qty: 26 0RF Rx Instructions: Take 1 tablet by mouth twice daily metronidazole 500 mg tablet 500 mg PO TID 13 Days Qty: 39 0RF Rx Instructions: Take 1 tablet by mouth 3 times daily Continued Calcium 600 with Vitamin D3 600 mg-10 mcg (400 unit) tablet,chewable 1 tab PO BID hydrocortisone acetate [Anucort-HC] 25 mg suppository 25 mg OR BID 10 Days Qty: 20 0RF Rx Instructions: PT HAS NOT STARTED USING olmesartan 5 mg tablet 5 mg PO DAILY Qty: 90 3RF multivitamin [Daily Multi-Vitamin] tablet 1 tab PO QAM mometasone 50 mcg/actuation spray,non-aerosol 1 spray intranasal [id number] Rx Instructions: SPRAY 1 SPRAY INTO EACH NOSTRIL DAILY - Tuesday, Tuesday and Tuesday Discharge Orders: Discharge Order (Routine); Ordered 04/04/25 Ordered By: Lazaro Rose Admission Data Admit Date/Time: 04/03/25 18:18 Attending Provider: Yoandy Moore Admit Provider: Trista Ryan Primary Care Provider: Miguelina Ramírez Other Providers: Trista Ryan; Yodit Hendricks Other Interventions: Discharge Summary Assessment (RN) Last Done: 04/04/25 12:28 Hospital Stay Data Consultations 04/03/25 16:38 ED Decision to Admit Stat 04/03/25 17:56 Consult General Surgery Routine Discharge Instructions Given to Patient (Per Discharging Provider) You were hospitalized overnight at [facility] from 04/03 - 04/04 due to an episode of acute sigmoid diverticulitis. Imaging of your abdomen and pelvis revealed that there is a "sinus tract" extending from her mesocolon towards her uterus. We reached out to her colorectal surgeon (Dr. Yodit Hendricks), who reviewed her imaging, and felt that you are safe to be discharged home on oral antibiotics. Please plan to follow-up with Dr. Hendricks as an outpatient in the next 1 to 2 weeks. At time of discharge, your vitals are all stable. Your blood work does not reveal an elevated white blood cell count indicating severe infection, and you report no abdominal symptoms on advancing her diet. For these reasons we feel, we feel safe for you to return home at this time. We recommend that you continue to maintain a full liquid diet upon discharge and gradually re- introduce a low fiber diet of solids as tolerated. New prescriptions on discharge: - Ciprofloxacin 500 mg twice daily x 13 days - Metronidazole 500 mg 3 times daily x 13 days Please continue to take these antibiotics for the full course even if you begin to feel better. We also recommend you follow-up with your PCP in the next 7 to 10 days for a transitional care appointment. If you develop any new or worsening symptoms, such as fevers, chills, intractable abdominal pain/pressure, nausea, vomiting, or diarrhea, please ret urn to the Emergency Department immediately. It was a pleasure taking care of you. Please reach out with any questions or concerns. Sincerely, The Hospital medicine team at [facility] Total Time Total Time Spent Total Time Spent (In Minutes): 25 Coding [place] [address] IN/OBS DISCH 30 MIN/LESS Patient Type Established Medical Decision Making Low Complexity Diagnoses Sigmoid diverticulitis K57.32 Diverticulitis of large intestine with complication K57.32
[2025-04-04 12:28] VITALS: BP 143/74
[2025-04-04] MEDS: PIPERACILLIN/TAZOBACTAM 4.5 GM/100 ML BAG IV ONE (12:59)
== END 2025-04-04 15:59 | disposition home or self-care (01) ==
LOC: 3N 15:32 → ED 15:32 → SUATTDRO 18:18 → 3N 22:04